=== PATIENT | female | born 1960 | race Caucasian/White ===

== ENCOUNTER 2018-03-15 17:58 | Emergency (ER) | payer SELFPAY ==
[~2018-03-15] VITALS: Ht 165.1 cm; Wt 127.2 kg
[2018-03-15] MEDS ORDERED: LYSTEDA650 MG PO (18:48)
== END 2018-03-15 19:03 | disposition home or self-care (01) ==
LOC: FSED 17:58
DX: N93.9 Abnormal uterine and vaginal bleeding, unspecified (principal); J45.909 Unspecified asthma, uncomplicated
CPT/HCPCS: 99283